=== PATIENT | male | born 1970 | race African-American/Black ===

== ENCOUNTER 2016-09-28 13:03 | Emergency (ER) | payer BC ==
--- NOTE | ~2016-09-28 | CR229 ---
[facility]. [facility] A Service of [facility] & [facility] RADIOLOGY TEXT RESULTS PATIENT: HOMER SCHAFFER LOCATION: SED : 70 UNIT #: [id number] AGE: [address]: Catie Henderson APRN SEX: M ORDER DR: [id number] [place] [id number] E MR#: [id number] Acc #: [id number] NAME: HOMER SCHAFFER : 1970 SEX: M STUDY DATE/TIME: 09/28/2016 13:40 UNIT: SED ROOM: STUDY DESCRIPTION: CR Shoulder Min 2 View Lt Attending Physician: Catie Henderson A.P.R.N. Ordering Physician: Catie Henderson A.P.R.N. Primary Care Physician: Primary Care Physician No MEDICAL IMAGING REPORT This report is preliminary unless electronic signature is present. EXAM Left shoulder 2 views INDICATION Left shoulder pain for 5 months. COMPARISON No comparisons FINDINGS There is no fracture or dislocation. Joint spaces are maintained. IMPRESSION Negative. Dictated by... Danie Rivera M.D. THIS IS AN ELECTRONICALLY VERIFIED REPORT Danie Rivera M.D. at 09/29/2016 10:02 AM SLIM/sasha TD: 09/28/2016 15:32 JOB #: [id number] MEDICAL IMAGING REPORT Page 1 of 1
--- NOTE | ~2016-09-28 | CR142 ---
[facility]. [facility] A Service of [facility] & [facility] RADIOLOGY TEXT RESULTS PATIENT: HOMER SCHAFFER LOCATION: SED : 70 UNIT #: [id number] AGE: [address]: Catie Henderson APRN SEX: M ORDER DR: [id number] [place] [id number] E MR#: [id number] Acc #: [id number] NAME: HOMER SCHAFFER : 1970 SEX: M STUDY DATE/TIME: 09/28/2016 13:40 UNIT: SED ROOM: STUDY DESCRIPTION: CR Hand Min 3 Views Rt Attending Physician: Catie Henderson A.P.R.N. Ordering Physician: Catie Henderson A.P.R.N. MEDICAL IMAGING REPORT This report is preliminary unless electronic signature is present. EXAM Right hand 3 views INDICATIONS 46-year-old male with pain for 3 months. COMPARISON STUDIES No comparisons. FINDINGS No evidence of fracture. No dislocation. Joint spaces are preserved. Soft tissue structures are unremarkable. IMPRESSION Negative. Dictated by... Danie Rivera M.D. THIS IS AN ELECTRONICALLY VERIFIED REPORT Danie Rivera M.D. at 09/29/2016 10:02 AM ARS/pcl TD: 09/28/2016 15:30 JOB #: [id number] MEDICAL IMAGING REPORT Page 1 of 1
[~2016-09-28 13:03] MED LIST: NO MEDICATIONS
== END 2016-09-28 15:01 | disposition home or self-care (01) ==
LOC: SED 13:03
DX: S46.012A Strain of muscle(s) and tendon(s) of the rotator cuff of left shoulder, initial encounter (principal); F17.200 Nicotine dependence, unspecified, uncomplicated; X58.XXXA Exposure to other specified factors, initial encounter; Y92.9 Unspecified place or not applicable
CPT/HCPCS: 73030; 73130; 99284